=== PATIENT | male | born 1960 | race American Indian/Alaskan Native ===

== ENCOUNTER 2020-08-16 11:12 | Outpatient (CLI) | payer OTHER ==
--- NOTE | 2020-08-16 13:25 | XRay Report ---
CERVICAL SPINE 4 VIEWS INDICATION: Back pain. COMPARISON: None. IMPRESSION: There is mild reversal of the normal cervical lordosis. Normal alignment otherwise. Mod erate degenerative disc disease is identified at all levels. The facet joints are unremarkable. No a cute osseous or soft tissue abnormality. LUMBOSACRAL SPINE 3 VIEWS INDICATION: Back pain. COMPARISON: None. IMPRESSION: Normal alignment. Mild degenerative disc disease and facet arthropathy are identified a t L5-S1. The remaining levels are within normal limits. No acute osseous or soft tissue abnormality. BILATERAL FEET 2 VIEWS INDICATION: BILATERAL FOOT PAIN. COMPARISON: None. IMPRESSION: No acute osseous or soft tissue abnormality. No significant DJD. Moderate bilateral p lantar spurs are noted. Signer Name: Torsten Finch Jr, MD Signed: 08/16/2020 1:20 PM Workstation Name: [id number]
== END 2020-08-16 11:13 | disposition home or self-care (01) ==
LOC: XRAY 11:12
PROVIDERS: ATTEND Internal Medicine
DX: M77.31 Calcaneal spur, right foot (principal); M77.32 Calcaneal spur, left foot; M47.817 Spondylosis without myelopathy or radiculopathy, lumbosacral region; M51.37 Other intervertebral disc degeneration, lumbosacral region
CPT/HCPCS: 72040; 72100